=== PATIENT | male | born 1960 | race African-American/Black ===

== ENCOUNTER 2020-11-06 04:15 | Day surgery (SDC) | payer BC ==
[2020-11-05 15:36] VITALS: BMI 29.1
[2020-11-06] MEDS ORDERED: PROPOFOL 20 ML ONE ×2 (07:30→08:01)
[2020-11-06] MEDS ORDERED: MIDAZOLAM HCL 2 MG/2 ML SINGLE DOSE VIAL ONE (07:31)
[2020-11-06] MEDS ORDERED: KETOROLAC TROMETHAMINE 30 MG/1 ML VIAL ONE (07:53)
[2020-11-06] MEDS ORDERED: ceFAZolin SODIUM 1 GM VIAL ONE (07:53)
[2020-11-06] MEDS ORDERED: LIDOCAINE HCL/PF 2% SDV 5ML VIAL ONE (07:53)
[2020-11-06] MEDS ORDERED: DEXAMETHASONE SOD PHOSPHATE 4 MG/1 ML VIAL ONE (07:53)
[2020-11-06] MEDS ORDERED: ceFAZolin SODIUM 1 GM VIAL IVPB ONE (07:55)
[2020-11-06] MEDS ORDERED: BACITRACIN 15 GM TUBE TOPICAL OINTMENT ONE (08:21)
[2020-11-06] MEDS ORDERED: oxyCODONE HCL 5 MG TABLET PO PRN ×2 (08:33→09:10)
[2020-11-06] MEDS ORDERED: DEXTROSE 5%-0.45% SALINE 1,000 ML IV SCH (08:45)
[2020-11-06] MEDS ORDERED: ONDANSETRON 4 MG/2 ML VIAL IVPUSH PRN (09:10)
[2020-11-06] MEDS ORDERED: LACTATED RINGERS SOLUTION 1,000 ML IV SCH (09:15)
[2020-11-06 11:47] VITALS: BP 142/85; PULSE 86; TEMP 97
== END 2020-11-06 11:10 | disposition home or self-care (01) ==
LOC: JASU-SURG 04:15
PROVIDERS: ATTEND Urology
PROC: 0VB70ZZ Excision of Left Tunica Vaginalis, Open Approach (ICD-10-PCS; principal; 2020-11-06 07:30)
DX: N43.2 Other hydrocele (principal); I48.91 Unspecified atrial fibrillation; I10 Essential (primary) hypertension
CPT/HCPCS: 88302-TC; 94760